=== PATIENT | female | born 1960 | race Caucasian/White ===

== ENCOUNTER → 2017-05-30 | Outpatient (CLI) | payer BC ==
--- NOTE | 2017-05-30 14:18 | RAD ---
Thyroid ultrasound 05/30/2017 Indication: Palpable enlargement of the thyroid. Comparison: None. Findings: Maximal AP thickness of the isthmus measures 0.5 cm. There is nodular enlargement of the right lobe of the measuring 5.6 x 2.1 x 1.8 cm. There are multiple nodules throughout the right lobe measuring 1.1 x 0.7 x 0.7 cm at the mid aspect, mid/lower aspect 1.3 x 1.1 x 1.0 cm and 1.0 x 0.7 x 0.6 at the lower aspect of the right lobe all demonstrating similar features of iso-/hypoechoic. The dominant 1.3 cm nodule is partially cystic and solid. Left lobe of the thyroid demonstrates diffuse heterogeneous enlargement measuring 5.6 x 1.8 x 1.5 cm. There are multiple scattered nodules, dominant nodule in the superior aspect measures 0.6 x 0.6 x 0.6 cm. Dominant nodule in the mid aspect measures 1.5 x 1.1 x 0.9 cm. Dominant nodule in the inferior aspect measures 1.8 x 1.4 x 1.1 cm. The majority of the nodules in the left lobe demonstrates similar isoechoic to slightly hyperechoic appearance. There is hypervascularity throughout the thyroid. Impression: Multinodular thyroid with diffuse hypervascularity, largest nodule is in the inferior left lobe measuring up to 1.8 cm and is amenable to percutaneous biopsy if clinically indicated.
== END | disposition home or self-care (01) ==
LOC: US 13:03
PROVIDERS: ATTEND Nurse Practitioner Family
DX: E04.2 Nontoxic multinodular goiter (principal)
CPT/HCPCS: 76536